=== PATIENT | male | born 1980 | race Caucasian/White ===

== ENCOUNTER 2017-12-11 08:18 | Day surgery (SDC) | payer BC ==
[2017-12-11] MEDS ORDERED: LIDOCAINE 4% SOLUTION 50 ML BTL (09:05)
[2017-12-11] MEDS ORDERED: MIDAZOLAM 1 MG/ML 2 ML INJ ×2 (09:41)
[2017-12-11] MEDS ORDERED: FENTAnyl 50 MCG/ML VIAL (09:41)
== END 2017-12-11 15:05 | disposition home or self-care (01) ==
LOC: GIL 08:18
DX: K21.0 Gastro-esophageal reflux disease with esophagitis (principal)
CPT/HCPCS: 43239; 88305; 88312; 88313